=== PATIENT | male | born 1990 | race Caucasian/White ===

== ENCOUNTER 2016-02-11 06:27 | Day surgery (SDC) | payer OTHER ==
[2016-02-10 09:35] VITALS: BMI 68.4
[~2016-02-11] VITALS: Ht 175.3 cm; Wt 210.5 kg
[2016-02-11] VITALS (12 sets, daily range): BP systolic 101–165; BP diastolic 45–75; PULSE 79–96; RESP 16–28; Ht 175.3 cm; Wt 210.5 kg
[~2016-02-11 06:27] MED LIST: CEFAZOLIN 3 GM in SOD CHLORIDE 0.9% 100 ML IVPB SCH; ESCI20TA38 PO; HYDR12.58 PO; LACTATED RINGER'S 1,000 ML IV* SCH; LISI10TA2 PO
[2016-02-11] MEDS ORDERED: NAPR-688 PO (06:36)
[2016-02-11] MEDS ORDERED: victoza SQ (06:36)
[2016-02-11] MEDS ORDERED: MIDAZOLAM 1 MG/ML 2 ML INJ ONE (07:55)
[2016-02-11] MEDS ORDERED: FENTAnyl 50 MCG/ML VIAL ONE (07:56)
[2016-02-11] MEDS ORDERED: HYDROmorphONE (0.2 MG/ML) 10ML SYG IV PRN ×2 (08:30)
[2016-02-11] MEDS ORDERED: FENTAnyl 50 MCG/ML VIAL IV PRN ×3 (08:30)
[2016-02-11] MEDS ORDERED: ONDANSETRON 4 MG INJ IV PRN ×2 (08:30→10:00)
[2016-02-11] MEDS ORDERED: MEPERIDINE 25 MG INJ IV PRN (08:30)
[2016-02-11] MEDS ORDERED: LABETALOL HCL 20MG INJ IV PRN (08:30)
[2016-02-11] MEDS ORDERED: PROPOFOL 20 ML ONE (08:43)
[2016-02-11] MEDS ORDERED: BUPIVACAINE 0.5% (SDV) 30 ML INJ ONE (08:45)
[2016-02-11] MEDS ORDERED: LIDOCAINE 1%/EPI 30 ML INJ ONE (08:45)
[2016-02-11] MEDS ORDERED: CEFAZOLIN 1 GM INJ ONE (08:50)
[2016-02-11] MEDS: HYDROmorphONE (0.2 MG/ML) 10ML SYG IV PRN ×2 (09:51→10:01)
[2016-02-11] MEDS ORDERED: LACTATED RINGER'S 1,000 ML IV SCH (09:55)
[2016-02-11] MEDS ORDERED: morphine 2 MG INJ IV PRN (10:00)
[2016-02-11] MEDS ORDERED: HYDROCODONE/APAP (5/325) TAB PO PRN ×2 (10:00)
--- NOTE | 2016-02-11 10:07 | OPR ---
Date/Time of Note Date/Time of Note DATE: 02/11/16 TIME: 10:00 Operative Report Procedure Date: Feb 11, 2016 Preoperative Diagnosis Right buttock chronic decubitus ulcer Postoperative Diagnosis Right buttock chronic decubitus ulcer, stage IV, 11 x 4 cm. Depth 10 cm Operation Performed 1. Excisional debridement of right buttock skin, subcutaneous, fascia. 11 x 4 cm 2. Implantation of biologic powder and sheet into the ulcer bed 2. Negative pressure dressing placement, wound VAC. Surgeon: ASAF EPPS MD Anesthesia: MAC (per trach) Estimated Blood Loss: 0 - 10 ml's Specimens Tissue Tubes/Drains Wound VAC sponge and acell 10 x 15 cm, 3 layer layer +1 g Complications: None Pt Condition Post Procedure: stable Disposition: PACU Indications Chronic nonhealing right buttock stage IV decubitus ulcer here for excisional debridement. Risks benefits alternatives were fully explained to patient and family as per usual and they agree to proceed. He understands that this may not also help improve or heal the wound. Procedure Description Patient was brought and placed supine on his bed. After induction of anesthesia he was placed in lateral decubitus position. All pressure points well-padded. Timeout was performed. Preoperative antibiotics administered. Probe was placed into the tunnel and the skin and subcutaneous tissue over the probe were opened all the way to the base of the tunnel. Segment of tissue was excised and sent to pathology. The tunnel was excised and sent to pathology. One was not exposed but the fascia was involved and the fascia was also debrided with electrocautery and curet to healthier tissue. Wound was irrigated and made fully hemostatic. 1 g of acell powder was made into a paste with 7 mL of saline and placed into the wound. A 10 x 15 cm a 3 layered sheath was wrapped around the VAC sponge in place all the way into the wound and the dressing was applied on top of the VAC and then back connected to the machine at 50 mmHg. Patient tolerated procedure well. He was taken back to recovery room in stable condition and all counts were correct at the end the operation 2. ASAF EPPS MD Feb 11, 2016 10:07
== END 2016-02-11 11:45 | disposition home or self-care (01) ==
LOC: SDS 06:27
PROVIDERS: ATTEND Surgery
DX: L89.314 Pressure ulcer of right buttock, stage 4 (principal); L90.5 Scar conditions and fibrosis of skin; E11.9 Type 2 diabetes mellitus without complications; I10 Essential (primary) hypertension; E66.01 Morbid (severe) obesity due to excess calories; Z68.44 Body mass index [BMI] 60.0-69.9, adult
CPT/HCPCS: 11043; 88304; J0690; J1170; J2250; J3010; Q4118; Q4119; Z7512; Z7610